=== PATIENT | female | born 1965 | race American Indian/Alaskan Native ===

== ENCOUNTER → 2019-10-12 | Outpatient (CLI) | payer BC ==
--- NOTE | 2019-10-18 09:10 | Diagnostic Imaging Report ---
#[id number] - [id number] #BILATERAL FIRST EVER DIGITAL SCREENING MAMMOGRAM WITH CAD: 10/12/2019 CLINICAL: Routine screening. Baseline examination. No prior exams were available for comparison. Current study contains 3 films. There are scattered fibroglandular elements in both breasts. Current study was also evaluated with a Computer Aided Detection (CAD) system. There are benign vascular calcifications in both breasts. No significant masses, calcifications, or other findings are seen in either breast. IMPRESSION: BENIGN There is no mammographic evidence of malignancy. A 1 year screening mammogram is recommended. The patient will be notified by letter of the results. CAMMY CARLOS M.D. ct/penrad:10/15/2019 16:04:23 Senior Mechanical Project Engineer: Basia SWENSON)(Michael), [facility] letter sent: Normal Exam Mammogram BI-RADS: 2 Benign
== END ==
LOC: MAMMO 13:51
PROVIDERS: ATTEND Internal Medicine
DX: Z12.31 Encounter for screening mammogram for malignant neoplasm of breast (principal)
CPT/HCPCS: 77067